=== PATIENT | male | born 1990 | race Caucasian/White ===

== ENCOUNTER 2020-08-21 11:11 | Emergency (ER) | payer MEDICAID ==
[~2020-08-21] VITALS: Ht 172.7 cm; Wt 88.0 kg
[2020-08-21 11:14] VITALS: BP 112/76
--- NOTE | 2020-08-21 11:22 | NUR ---
Patient ambulated with steady gait to bed 3.
--- NOTE | 2020-08-21 11:24 | NUR ---
30 Y/O MALE C/O CHEST PAIN 09/25 DESCRIBES PRESSURE AND NUMBNESS RADIATING TO MID BACK AND BUE X 2 DAYS. PT DENIES TRAUMA/INJURY, DENIES N/V, DENIES FEVER/CHILLS. PT STATES HE RECEIVED 2 DOSES PFIZER OF COVID VACCINE. NO LABORED BREATHING NOTED ON AUSCULTATION, PT CALM AND COOPERATIVE. DENIES PMH ALLERGIES: PCN
--- NOTE | 2020-08-21 12:25 | NUR ---
Dr. Cummins at pt bedside for further evaluation.
--- NOTE | 2020-08-21 12:35 | NUR ---
Collected ZARIA URBINA, walked to lab gave to Alisia munson.
--- NOTE | 2020-08-21 12:46 | NUR ---
model technician at pt bedside.
[2020-08-21] MEDS ORDERED: PROM473S5 PO (13:26)
--- NOTE | 2020-08-21 13:43 | NUR ---
Patient discharged with v/s stable. Written and verbal after care instructions given and explained. Patient alert, oriented and verbalized understanding of instructions. Ambulatory with steady gait. All questions addressed prior to discharge. ID band removed. Patient advised to follow up with PMD. Rx of phenergan 6.5mL q6h prn cough given. Patient educated on indication of medication including possible reaction and side effects. Opportunity to ask questions provided and answered.
== END 2020-08-21 13:43 | disposition home or self-care (01) ==
LOC: MED 11:11
DX: J20.9 Acute bronchitis, unspecified (principal); Z88.0 Allergy status to penicillin; Z20.822 Contact with and (suspected) exposure to COVID-19
CPT/HCPCS: 71045; 93005; 99285; U0003